=== PATIENT | male | born 1970 | race Caucasian/White ===

== ENCOUNTER 2017-03-04 23:24 | Emergency (ER) | payer OTHER | END 2017-03-05 01:55 | disposition home or self-care (01) | LOC: ER 23:24 | DX: E11.65 Type 2 diabetes mellitus with hyperglycemia (principal); I10 Essential (primary) hypertension; Z79.84 Long term (current) use of oral hypoglycemic drugs | CPT/HCPCS: 36415; 96361; 96374 ==